=== PATIENT | male | born 1950 | race Caucasian/White ===

== ENCOUNTER 2016-11-19 03:13 | Emergency (ER) | payer MEDICARE, OTHER ==
[~2016-11-19] VITALS: Ht 177.8 cm; Wt 92.0 kg
[2016-11-19 03:45] VITALS: BP 117/62; PULSE 71; RESP 16; TEMP 98.7; O2SAT 94
[2016-11-19] MEDS ORDERED: TACR0.5 PO (06:31)
[2016-11-19] MEDS ORDERED: GABA600T PO (06:31)
[2016-11-19 06:32] VITALS: BP 168/88; PULSE 70; RESP 18; O2SAT 97
--- NOTE | 2016-11-19 06:40 | PD ---
HPI Chief Complaint: Alcohol/Drug Intoxication Time Seen by Provider: 06:32 Travel History International Travel<30 days: No Contact w/Intl Traveler<30days: No Traveled to known affect area: No History of Present Illness HPI This is a 66-year-old male who presents the emergency department having been brought in by police under a [place] act because he was found appearing intoxicated in his car at a convenience store. The patient reports that the last thing he remembers is the [place] which was 3 days ago. He doesn't remember how he got here. He is a poor historian. [facility] Past Medical History Medical History: Unable to Obtain Past Surgical History Surgical History: Unable to Obtain Social History Alcohol Use: No Tobacco Use: No Substance Use: No Allergies-Medications (Allergen,Severity, Reaction): Coded Allergies: Losartan (Verified Allergy, Severe, Swelling, 11/19/16) Tylenol (Verified Allergy, Severe, Swelling, 11/19/16) Reported Meds & Prescriptions Reported Meds & Active Scripts Active Reported Gabapentin 600 Mg Tab 600 Mg PO TID Prograf (Tacrolimus) 0.5 Mg Cap 0.5 Mg PO BID Review of Systems ROS Limitations: Intoxication Physical Exam Narrative GENERAL:Well appearing, no acute distress SKIN: Warm and dry. HEAD: Atraumatic. Normocephalic. EYES: Pupils equal and round. No injection or drainage. ENT: Moist mucous membranes NECK: Trachea midline. CARDIOVASCULAR: Regular rate and rhythm. No murmur appreciated. RESPIRATORY: Clear to auscultation. Breath sounds equal bilaterally. GASTROINTESTINAL: Abdomen soft, non-tender, nondistended. MUSCULOSKELETAL: No obvious deformities. NEUROLOGICAL: Oriented to person and place but not time. Confused. Somnolent. No obvious cranial nerve deficits. Moving all extremities. Data Data Last Documented VS Vital Signs Date Time Temp Pulse Resp B/P Pulse Ox O2 Delivery O2 Flow Rate FiO2 11/19/16 06:32 70 18 168/88 97 Room Air 11/19/16 03:45 98.7 MDM Medical Decision Making Medical Screen Exam Complete: Yes Emergency Medical Condition: Yes Differential Diagnosis Alcohol intoxication, drug intoxication, electrolyte abnormality, rhabdomyolysis Narrative Course This is a 66-year-old male who presents to the emergency department under Dewitt' s act. The patient is clinically intoxicated. He has no memory of how long he was sitting in his car. Labs will be obtained. Patient will be observed until sobriety. He is no evidence of trauma on physical exam. Farhana Painter MD Nov 19, 2016 06:39
[2016-11-19 07:21] LABS: AUTOMATED NEUTROPHIL # 2.1 TH/MM3 (1.8-7.7); BASOPHIL % 0.7 % (0.0-2.0); EOSINOPHIL # 0.3 TH/MM3 (0-0.4); HEMATOCRIT 36.8 % (39.0-51.0); HEMO FLAGS DIFF FINAL; LYMPH % 36.6 % (9.0-44.0); LYMPHOCYTE # 1.6 TH/MM3 (1.0-4.8); MEAN CELL VOLUME 89.3 FL (80.0-100.0); MEAN CORPUSCULAR HEMOGLOBIN 30.9 PG (27.0-34.0); MEAN CORPUSCULAR HGB CONC 34.5 % (32.0-36.0); NEUT % 48.7 % (16.0-70.0); PLATELET COUNT 131 TH/MM3 (150-450); RED BLOOD COUNT 4.12 MIL/MM3 (4.50-5.90); RED CELL DISTRIBUTION WIDTH 14.4 % (11.6-17.2); WHITE BLOOD COUNT 4.4 TH/MM3 (4.0-11.0)
[2016-11-19 07:39] VITALS: BP 168/88; PULSE 64; RESP 16; O2SAT 96
[2016-11-19 07:44] LABS: ALKALINE PHOSPHATASE 120 U/L (45-117); TOTAL BILIRUBIN ADULT 0.4 MG/DL (0.2-1.0)
[2016-11-19 07:45] LABS: ALT (GPT) 30 U/L (12-78); ANION GAP 6 MEQ/L (5-15); AST (GOT) 34 U/L (15-37); BICARBONATE 29.1 MEQ/L (21.0-32.0); BLOOD UREA NITROGEN 17 MG/DL (7-18); CHLORIDE 107 MEQ/L (98-107); GLOMERULAR FILTRATION RATE 54 ML/MIN (>89); POTASSIUM 4.4 MEQ/L (3.5-5.1); SODIUM (NA) 142 MEQ/L (136-145)
[2016-11-19] MEDS ORDERED: SODIUM CHLORID 0.9% 500 ML INJ 500 ML IV ONE (09:45)
[2016-11-19 10:07] LABS: AMPHETAMINE, URINE POS (NEG); BARBITURATES, URINE NEG (NEG); COCAINE, URINE POS (NEG)
--- NOTE | 2016-11-19 10:37 | PD ---
Physical Exam Date Seen by Provider: Nov 19, 2016 Time Seen by Provider: 10:00 Narrative Physical exam shows no focal findings. The patient is awake alert and appropriate. He is able to answer questions. He knows that he is supposed to be at detox today. He was informed that his sister and [id number] to come pick him up and taken to detox. Data Data Last Documented VS Vital Signs Date Time Temp Pulse Resp B/P Pulse Ox O2 Delivery O2 Flow Rate FiO2 11/19/16 07:39 64 16 96 11/19/16 07:39 168/88 11/19/16 06:32 Room Air 11/19/16 03:45 98.7 Orders Complete Blood Count With Diff (11/19/16 06:37) Comprehensive Metabolic Panel (11/19/16 06:37) Alcohol (Ethanol) (11/19/16 06:37) Drug Screen, Random Urine (11/19/16 06:37) Creatine Kinase (Cpk) (11/19/16 06:45) Sodium Chlorid 0.9% 500 Ml Inj (Ns 500 M (11/19/16 09:45) Labs Laboratory Tests Test 11/19/16 11/19/16 06:46 09:00 White Blood Count 4.4 TH/MM3 Red Blood Count 4.12 MIL/MM3 Hemoglobin 12.7 GM/DL Hematocrit 36.8 % Mean Corpuscular Volume 89.3 FL Mean Corpuscular Hemoglobin 30.9 PG Mean Corpuscular Hemoglobin 34.5 % Concent Red Cell Distribution Width 14.4 % Platelet Count 131 TH/MM3 Mean Platelet Volume 7.4 FL Neutrophils (%) (Auto) 48.7 % Lymphocytes (%) (Auto) 36.6 % Monocytes (%) (Auto) 7.0 % Eosinophils (%) (Auto) 7.0 % Basophils (%) (Auto) 0.7 % Neutrophils # (Auto) 2.1 TH/MM3 Lymphocytes # (Auto) 1.6 TH/MM3 Monocytes # (Auto) 0.3 TH/MM3 Eosinophils # (Auto) 0.3 TH/MM3 Basophils # (Auto) 0.0 TH/MM3 CBC Comment DIFF FINAL Differential Comment Sodium Level 142 MEQ/L Potassium Level 4.4 MEQ/L Chloride Level 107 MEQ/L Carbon Dioxide Level 29.1 MEQ/L Anion Gap 6 MEQ/L Blood Urea Nitrogen 17 MG/DL Creatinine 1.33 MG/DL Estimat Glomerular Filtration 54 ML/MIN Rate Random Glucose 108 MG/DL Calcium Level 8.8 MG/DL Total Bilirubin 0.4 MG/DL Aspartate Amino Transf 34 U/L (AST/SGOT) Alanine Aminotransferase 30 U/L (ALT/SGPT) Alkaline Phosphatase 120 U/L Total Protein 6.7 GM/DL Albumin 3.4 GM/DL Ethyl Alcohol Level LESS THAN 3 MG/DL Urine Opiates Screen POS Urine Barbiturates Screen NEG Urine Amphetamines Screen POS Urine Benzodiazepines Screen POS Urine Cocaine Screen POS Urine Cannabinoids Screen NEG MDM Medical Record Reviewed: Yes Supervised Visit with KARIME: No Narrative Course The patient was signed out to me at [address] Farhana Painter, overnight physician. We are awaiting laboratory tests. The patient's urine toxicology screen shows positive opiates, benzodiazepines, amphetamines, cocaine. On reexamination at 10 AM, the patient was awake alert and remorseful. We had received a call from his sister stating that he has an appointment for intake at a detox facility. They're on their way here to take him once he is discharged. His creatinine was slightly elevated at 1.33. He was given 500 cc of IV normal saline. Diagnosis Primary Impression: Polysubstance dependence including opioid type drug without complication, episodic abuse Additional Impressions: Renal insufficiency History of liver transplant Disposition: DISCHARGE HOME Condition: Stable Rylan Porter MD Nov 19, 2016 10:37
[2016-11-19 12:51] VITALS: BP 147/82; PULSE 90; RESP 16; O2SAT 100
[2016-11-19 15:30] VITALS: BP 142/88; PULSE 88; RESP 20; O2SAT 98
[2016-11-19 20:14] VITALS: BP 132/74
== END 2016-11-19 20:15 | disposition home or self-care (01) ==
LOC: NEPC 03:13 → NEDAMB 20:15
DX: F19.20 Other psychoactive substance dependence, uncomplicated (principal); N28.9 Disorder of kidney and ureter, unspecified; Z94.4 Liver transplant status
CPT/HCPCS: 80053; 80307; 80320; 82550; 85025; 99284; J7040